=== PATIENT | male | born 1990 | race American Indian/Alaskan Native ===

== ENCOUNTER 2017-01-28 16:58 | Emergency (ER) | payer SELFPAY ==
[2017-01-28 17:11] VITALS: BMI 19.2
[2017-01-28 17:19] VITALS: RESP 18; TEMP 98
[2017-01-28 17:30] LABS: ADD MANUAL DIFF? NO
--- NOTE | 2017-01-28 17:30 | ED PDOC ---
Arrival/HPI - General Chief Complaint: Psychiatric Evaluation Time Seen by Provider: 01/28/17 17:01 Historian: Patient - History of Present Illness Narrative History of Present Illness (Text): 01/28/17 17:15 Andrea Ambrosio, a 26 year old male, presents to the emergency room with belief that "restaurants are poisoning him". He believes his friends "tell the restaurants to poison him". He also reports that for the past 2 months, every time he ate, he had been getting "electric shocks". Patient states the food makes him feel "unconscious and drowsy." Patient is exhibiting flight of ideas, poor historian, paranoid behavior. ems reports being called for "edp" 01/28/17 20:19 Time/Duration: > month Symptom Onset: Gradual Symptom Course: Unchanged Activities at Onset: Rest Context: Home Associated Symptoms (Text): none Past Medical History - Provider Review Nursing Documentation Reviewed: Yes - Psychiatric Hx Substance Use: No Family/Social History - Physician Review Nursing Documentation Reviewed: Yes Family/Social History: No Known Family HX Smoking Status: Never Smoked Hx Alcohol Use: No Hx Substance Use: No Allergies/Home Meds Allergies/Adverse Reactions: Allergies No Known Allergies Allergy (Verified 01/28/17 17:10) Home Medications: Home Meds Medication Instructions Recorded Confirmed No Known Home Med 01/28/17 01/28/17 Review of Systems - Physician Review All systems were reviewed & negative as marked: Yes - Review of Systems Systems not reviewed;Unavailable: Other (Flight of ideas) Constitutional: absent: Fevers Gastrointestinal: absent: Vomiting Musculoskeletal: Other (pain in fingers ("electric shocks")) Physical Exam Vital Signs Reviewed: Yes Vital Signs Temp Pulse Resp BP Pulse Ox 01/29/17 06:45 72 18 117/76 98 01/29/17 03:39 69 18 128/71 96 01/28/17 18:24 74 18 111/79 98 01/28/17 17:18 98 F 75 18 124/89 100 Temperature: Afebrile Blood Pressure: Normal Pulse: Regular Respiratory Rate: Normal Appearance: Positive for: Well-Appearing, Non-Toxic, Comfortable Pain Distress: None Mental Status: Positive for: Alert and Oriented X 3 - Systems Exam Head: Present: Atraumatic, Normocephalic Pupils: Present: PERRL Extroacular Muscles: Present: EOMI Conjunctiva: Present: Normal Mouth: Present: Moist Mucous Membranes Neck: Present: Normal Range of Motion Respiratory/Chest: Present: Clear to Auscultation, Good Air Exchange. No: Respiratory Distress, Accessory Muscle Use Cardiovascular: Present: Regular Rate and Rhythm, Normal S1, S2. No: Murmurs Abdomen: Present: Normal Bowel Sounds. No: Tenderness, Distention, Peritoneal Signs Back: Present: Normal Inspection Upper Extremity: Present: Normal Inspection. No: Cyanosis, Edema Lower Extremity: Present: Normal Inspection. No: Edema Neurological: Present: GCS=15, CN II-XII Intact, Speech Normal Skin: Present: Warm, Dry, Normal Color. No: Rashes Psychiatric: Present: Other (Flight of ideas) Medical Decision Making ED Course and Treatment: 01/28/17 17:28 Impression: 26 year old male complaining that food from restaurant is making him unconscious and "poisoning him". pt with parnoid behavior in er, will consult pes Differential Diagnosis included but are not limited to: suspected parnoid psychosis. will clear medically. Plan: -- EKG -- Urinalysis -- Labs -- Reassess and disposition Prior Visits: Notes and results from previous visits were reviewed. Progress Notes: EKG: Ordered, reviewed, and independently interpreted the EKG. Rate : 78 BPM Rhythm : NSR Interpretation : No ST/T changes Comparison : No previous EKG for comparison. in ed, pt making parnoid complaints to rn, stating Xray machine was "poisoning" him. Patient took PO with no acute distress. Abdomen soft and nontender. Patient has been medically cleared. Patient evaluated by PES, states he will likely need additional screening by [facility]. 01/28/17 22:58 pt endorsed to cook night, pending [facility] [place] screener 01/28/17 23:03 01/28/17 23:04 cxr neg as read by oh - Lab Interpretations Lab Results: 01/28/17 17:10 01/28/17 17:10 Lab Results 01/28/17 17:45: Urine Color Yellow, Urine Appearance Clear, Urine pH 7.0, Ur Specific [place] 1.020, Urine Protein Negative, Urine Glucose (UA) Negative, Urine Ketones Negative, Urine Blood Negative, Urine Nitrate Negative, Urine Bilirubin Negative, Urine Urobilinogen 0.2, Ur Leukocyte Esterase Negative, Urine Opiates Screen Negative, Urine Methadone Screen Negative, Ur Barbiturates Screen Negative, Ur Phencyclidine Scrn Negative, Ur Amphetamines Screen Negative , U Benzodiazepines Scrn Negative, U Oth Cocaine Metabols Negative, U Cannabinoids Screen Negative 01/28/17 17:10: WBC 4.5, RBC 5.07, Hgb 16.3, Hct 45.3, MCV 89.3, MCH 32.1, MCHC 36.0, RDW 12.2, Plt Count 199, MPV 9.7, Gran % 45.9 L, Lymph % (Auto) 45.0 H, [place] % (Auto) 7.1 H, Eos % (Auto) 1.8, Baso % (Auto) 0.2, Gran # 2.07, Lymph # 2.0, [place] # 0.3, Eos # 0.1, Baso # 0.01, Sodium 139, Potassium 4.0, Chloride 101 , Carbon Dioxide 30, Anion Gap 12, BUN 17, Creatinine 0.9, Est GFR ( Amer ) > 60, Est GFR (Non-Af Amer) > 60, Random Glucose 85, Calcium 9.5, Total Bilirubin 0.8, AST 30, ALT 28, Alkaline Phosphatase 53, Total Creatine Kinase 71 , Total Protein 8.4 H, Albumin 4.6, Globulin 3.7, Albumin/Globulin Ratio 1.2, Lipase 116, Salicylates < 1 L, Acetaminophen < 10.0 L, Alcohol, Quantitative < 10 I have reviewed the lab results: Yes - RAD Interpretation Radiology Orders: 01/28/17 17:24 CHEST PORTABLE [RAD] Stat - EKG Interpretation Interpreted by ED Physician: Yes Type: 12 lead EKG - Scribe Statement The provider has reviewed the documentation as recorded by the Param [place] training under Preston Ambrose All medical record entries made by the Param were at my direction and personally dictated by me. I have reviewed the chart and agree that the record accurately reflects my personal performance of the history, physical exam, medical decision making, and the department course for this patient. I have also personally directed, reviewed, and agree with the discharge instructions and disposition. Disposition/Present on Arrival - Present on Arrival Any Indicators Present on Arrival: No History of DVT/PE: No History of Uncontrolled Diabetes: No Urinary Catheter: No History of Decub. Ulcer: No History Surgical Site Infection Following: None - Disposition Have Diagnosis and Disposition been Completed?: Yes Diagnosis: Delusional disorder Disposition: HOME/ ROUTINE Disposition Time: 11:00 Condition: GOOD Additional Instructions: Follow up with [facility]. Return to the emergency department if any new concerning symptoms. Referrals: [facility] [Outside] - Follow up with primary
[2017-01-28 17:47] LABS: BASO # 0.01 K/mm3 (0.0-2.0); BASO % 0.2 % (0.0-3.0); EOS # 0.1 (0.0-0.7); EOS % 1.8 % (1.5-5.0); GRAN # 2.07 (1.4-6.5); GRAN % 45.9 % (50.0-68.0); HEMATOCRIT 45.3 % (42.0-52.0); MEAN CELL VOLUME 89.3 fL (80.0-105.0); MEAN CORPUSCULAR HEMOGLOBIN 32.1 pg (25.0-35.0); MEAN PLATELET VOLUME 9.7 fl (7.0-11.0); MONO # 0.3 (0.1-0.6); MONO % 7.1 % (1.0-6.0); PLATELET COUNT 199 10^3/uL (120.0-450.0); RED CELL DISTRIBUTION WIDTH 12.2 % (11.5-14.5); WHITE BLOOD COUNT 4.5 10^3/ul (4.5-11.0)
[2017-01-28 17:49] LABS: ALB/GLOB RATIO 1.2 (1.1-1.8); ALKALINE PHOSPHATASE 53 U/L (38-133); ALT/SGPT 28 U/L (7-56); AST/SGOT 30 U/L (15-59); BILIRUBIN,TOTAL 0.8 mg/dL (0.2-1.3); BLOOD UREA NITROGEN 17 mg/dL (7-21); CALCIUM 9.5 mg/dL (8.4-10.5); CARBON DIOXIDE 30 mmol/L (21-33); CHLORIDE 101 mmol/L (98-107); GFR AFRICAN-AMERICAN > 60; GLUCOSE,RANDOM 85 mg/dL (70-110); LIPASE 116 U/L (23-300); SODIUM 139 mmol/L (132-148); TOTAL PROTEIN 8.4 g/dL (5.8-8.3)
[2017-01-28 18:16] LABS: URINE APPEARANCE CLEAR (CLEAR); URINE BILIRUBIN NEGATIVE (NEGATIVE); URINE BLOOD NEGATIVE (NEGATIVE); URINE COLOR YELLOW (YELLOW); URINE GLUCOSE (UA) NEGATIVE (NEGATIVE); URINE KETONE NEGATIVE (NEGATIVE); URINE LEUKOCYTE ESTERASE NEGATIVE Leu/uL (NEGATIVE); URINE PROTEIN NEGATIVE mg/dL (<30 mg/dL); URINE UROBILINOGEN 0.2 E.U./dL (<1 E.U./dL)
--- NOTE | 2017-01-28 23:22 | ED PDOC ---
Physical Exam Vital Signs Reviewed: Yes Vital Signs Temp Pulse Resp BP Pulse Ox 01/29/17 03:39 69 18 128/71 96 01/28/17 18:24 74 18 111/79 98 01/28/17 17:18 98 F 75 18 124/89 100 Temperature: Afebrile Blood Pressure: Normal Pulse: Regular Respiratory Rate: Normal Appearance: Positive for: Well-Appearing, Non-Toxic, Comfortable Pain Distress: None Mental Status: Positive for: Alert and Oriented X 3 Medical Decision Making ED Course and Treatment: 01/28/17 23:00 Case endorsed to me by Dr. Loya, pending [facility] screening and final disposition. 01/29/17 02:18 [facility] screener has still not seen pt. Pt seen again by [facility] screener. Pt beginning to become hostile. Pt additionally spoken to, however pt is raising his voice, and is becoming belligerent. Placed in restraints. Still awaiting [facility] evaluation. 01/29/17 06:11 Patient seen by PES and has been psychiatrically cleared for discharge. - Lab Interpretations Lab Results: 01/28/17 17:10 01/28/17 17:10 Lab Results 01/28/17 17:45: Urine Color Yellow, Urine Appearance Clear, Urine pH 7.0, Ur Specific [place] 1.020, Urine Protein Negative, Urine Glucose (UA) Negative, Urine Ketones Negative, Urine Blood Negative, Urine Nitrate Negative, Urine Bilirubin Negative, Urine Urobilinogen 0.2, Ur Leukocyte Esterase Negative, Urine Opiates Screen Negative, Urine Methadone Screen Negative, Ur Barbiturates Screen Negative, Ur Phencyclidine Scrn Negative, Ur Amphetamines Screen Negative , U Benzodiazepines Scrn Negative, U Oth Cocaine Metabols Negative, U Cannabinoids Screen Negative 01/28/17 17:10: WBC 4.5, RBC 5.07, Hgb 16.3, Hct 45.3, MCV 89.3, MCH 32.1, MCHC 36.0, RDW 12.2, Plt Count 199, MPV 9.7, Gran % 45.9 L, Lymph % (Auto) 45.0 H, [place] % (Auto) 7.1 H, Eos % (Auto) 1.8, Baso % (Auto) 0.2, Gran # 2.07, Lymph # 2.0, [place] # 0.3, Eos # 0.1, Baso # 0.01, Sodium 139, Potassium 4.0, Chloride 101 , Carbon Dioxide 30, Anion Gap 12, BUN 17, Creatinine 0.9, Est GFR ( Amer ) > 60, Est GFR (Non-Af Amer) > 60, Random Glucose 85, Calcium 9.5, Total Bilirubin 0.8, AST 30, ALT 28, Alkaline Phosphatase 53, Total Creatine Kinase 71 , Total Protein 8.4 H, Albumin 4.6, Globulin 3.7, Albumin/Globulin Ratio 1.2, Lipase 116, Salicylates < 1 L, Acetaminophen < 10.0 L, Alcohol, Quantitative < 10 - RAD Interpretation Radiology Orders: 01/28/17 17:24 CHEST PORTABLE [RAD] Stat Disposition/Present on Arrival - Present on Arrival Any Indicators Present on Arrival: No History of DVT/PE: No History of Uncontrolled Diabetes: No Urinary Catheter: No History of Decub. Ulcer: No History Surgical Site Infection Following: None - Disposition Have Diagnosis and Disposition been Completed?: Yes Diagnosis: Delusional disorder Disposition: HOME/ ROUTINE Disposition Time: 06:10 Patient Plan: Discharge Condition: GOOD Additional Instructions: Follow up with [facility]. Return to the emergency department if any new concerning symptoms. Referrals: [facility] [Outside] - Follow up with primary
[2017-01-29 07:48] VITALS: BP 117/76; PULSE 72; O2SAT 98
--- NOTE | 2017-01-29 09:52 | RAD ---
HISTORY: Psych evaluation. Technique: Single view portable semi erect @ 17:35. COMPARISON: No prior. FINDINGS: LUNGS: No active pulmonary disease. PLEURA: No significant pleural effusion identified, no pneumothorax apparent. CARDIOVASCULAR: Normal. OSSEOUS STRUCTURES: No significant abnormalities. VISUALIZED UPPER ABDOMEN: Normal. OTHER FINDINGS: None. IMPRESSION: No active disease.
--- NOTE | 2017-01-29 10:46 | CARD ---
APPROVED REPORT EKG Measurement Heart [id number] <Conclusion> Normal sinus rhythm Normal ECG
== END 2017-01-29 06:45 | disposition home or self-care (01) ==
LOC: ED 16:58
DX: F22 Delusional disorders (principal)
CPT/HCPCS: 71010; 80053; 81003; 82550; 83690; 85025; 90791; 93005; 99285; G0480